=== PATIENT | female | born 2000 | race Caucasian/White ===

== ENCOUNTER 2021-05-09 13:40 | Emergency (ER) | payer SELFPAY ==
[~2021-05-09] VITALS: Ht 149.9 cm; Wt 55.8 kg
[2021-05-09 13:43] VITALS: BP 120/69
[2021-05-09] MEDS ORDERED: PROM118S5 PO (14:09)
[2021-05-09] MEDS ORDERED: ONDA-24 SL (14:09)
[2021-05-09] MEDS ORDERED: IBUP-2213 PO (14:09)
[2021-05-09 14:22] VITALS: BP 120/69
--- NOTE | 2021-05-09 14:44 | NUR ---
Patient discharged with v/s stable. Written and verbal after care instructions given and explained. Patient alert, oriented and verbalized understanding of instructions. Ambulatory with steady gait. All questions addressed prior to discharge. ID band removed. Patient advised to follow up with PMD. Rx of ONDANSETRON, PROMETHAZINE given. Patient educated on indication of medication including possible reaction and side effects. Opportunity to ask questions provided and answered.
== END 2021-05-09 14:44 | disposition home or self-care (01) ==
LOC: MED 13:40
DX: J06.9 Acute upper respiratory infection, unspecified (principal); R11.0 Nausea; Z79.899 Other long term (current) drug therapy
CPT/HCPCS: 99283

== ENCOUNTER 2021-05-24 15:29 | Emergency (ER) | payer SELFPAY ==
[~2021-05-24 15:29] MED LIST: IBUP-2213 PO; ONDA-24 SL; PROM118S5 PO
--- NOTE | 2021-05-24 15:30 | NUR ---
PATIENT LEFT WITHOUT BEING TRIAGED. NO FURTHER CARE PROVIDED FOR PATIENT.
== END 2021-05-24 15:30 | disposition left against medical advice (07) ==
LOC: MED 15:29
DX: Z53.21 Procedure and treatment not carried out due to patient leaving prior to being seen by health care provider (principal)